=== PATIENT | male | born 1985 | race Caucasian/White ===

== ENCOUNTER 2021-10-31 14:24 | Emergency (ER) | payer MEDICAID ==
[~2021-10-31] VITALS: Ht 182.9 cm; Wt 62.0 kg
[2021-10-31 14:34] VITALS: BP 138/83
[2021-10-31] MEDS ORDERED: ONDANSETRON PF 4 MG/2 ML VIAL. IVP ONE (14:45)
[2021-10-31] MEDS ORDERED: MORPHINE SULFATE 2 MG/ML INJ. IVP ONE (14:45)
[2021-10-31] MEDS ORDERED: IV NORMAL SALINE 1000ML BAG 1,000 ML IV ONE (14:45)
[2021-10-31 15:02] LABS: BASO % 0 % (0-3); EOS # 0.1 x10^3/uL (0.0-0.7); EOS % 1 % (0-3); HEMATOCRIT 36.9 % (39.0-53.0); HEMOGLOBIN 12.9 g/dL (13.0-17.5); LYMPH # 1.3 x10^3/uL (1.0-4.8); LYMPH % 15 % (24-48); MEAN CORPUSCULAR HEMOGLOBIN 30 pg (25-35); MEAN CORPUSCULAR HGB CONC 35 g/dL (31-37); MEAN CORPUSCULAR VOLUME 84 fL (79-100); MONO # 0.7 x10^3/uL (0.0-1.1); MONO % 8 % (0-9); NEUT # 6.7 x10^3/uL (1.8-7.7); NEUT % 76 % (31-73); PLATELET COUNT 260 x10^3/uL (140-400); RED BLOOD COUNT 4.38 x10^6/uL (4.30-5.70); RED CELL DISTRIBUTION WIDTH 13.6 % (11.5-14.5); WHITE BLOOD COUNT 8.8 x10^3/uL (4.0-11.0)
[2021-10-31 15:15] LABS: CALCIUM 8.6 mg/dL (8.5-10.1); POTASSIUM 3.8 mmol/L (3.5-5.1)
[2021-10-31 15:16] LABS: BACTERIA,URINE 0 /HPF (0-FEW); RBC,URINE 0 /HPF (0-2)
[2021-10-31] MEDS ORDERED: MORPHINE SULFATE 4 MG/ML INJ. ONE (15:16)
[2021-10-31 15:23] LABS: ALBUMIN 3.5 g/dL (3.4-5.0); MAGNESIUM 1.8 mg/dL (1.8-2.4); TOTAL BILIRUBIN 0.6 mg/dL (0.2-1.0); TOTAL PROTEIN 6.9 g/dL (6.4-8.2)
--- NOTE | 2021-10-31 15:36 | RAD ---
EXAMINATION: CT HEAD AND C-SPINE WO. TECHNIQUE: Noncontrast axial images of the brain and cervical spine with coronal and sagittal recon structions were obtained. One or more of the following radiation dose reduction techniques was used: automated exposure control , adjustment of mA and/or KV according to patient size, and/or utilization of iterative reconstructio n technique. HISTORY: 36 years Male Reason: Seizure-like activity, struck right side of head, pain in the head a nd neck. FINDINGS: CT HEAD: There is no intracranial hemorrhage, edema or mass effect. The brain parenchyma appears unremarkable . No hydrocephalus. The visualized portions of the orbits and paranasal sinuses appear unremarkable. CT cervical spine: The alignment of the posterior spinal line satisfactory. The vertebral body heights are preserved. Disc heights are also preserved. There is good alignment at the lateral masses of C1 and C2 and atlantooccipital joints. No widening of the predental space. No fracture seen. The paraspinal soft tissues appear unremarkable. IMPRESSION: CT HEAD: No acute process. CT cervical spine: No acute process. Electronically signed by: Clifford West MD (10/31/2021 3:33 PM) [id number]
[2021-10-31 16:37] LABS: BARBITURATES NEG (NEG); BENZODIAZEPINES NEG (NEG); CANNABINOIDS NEG (NEG); COCAINE NEG (NEG); METHADONE NEG (NEG); OPIATES NEG (NEG); PHENCYCLIDINE NEG (NEG)
[2021-10-31 16:58] LABS: AMPHETAMINE/METHAMPHETAMINE NEG (NEG)
--- NOTE | 2021-10-31 18:10 | PHYS DOC ---
Past Medical History Additional Past Medical Histor: COLON RECTAL CANCER REMISSION 9YEARS, ULCERS, Past Surgical History: Cancer Surgery, Colectomy Additional Past Surgical Histo: ILLEOSTOMY-REVERSAL General Adult EDM: Chief Complaint: BLOOD SUGAR PROBLEM HPI: HPI: Patient is a 36-year-old male who presents to the emergency department via EMS complaining of a hypoglycemic episode with possible seizure-like activity per EMS transporting manifest clerk statement. Patient was found in postictal state, blood sugar was 64, patient was given 250 cc of D10, blood sugar elevated to 258 in route. Patient also at a sandwich and some milk prior to transport to the emergency department. Patient's sister reported she did fine patient shaking on the ground and what she thought was seizure-like activity, there was an unwitnessed onset of unresponsiveness and shakiness. Patient's sister called 911 immediately. Patient was not having seizure-like activity upon manifest clerk arrival. Patient reports he has a headache. 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 Patient reports he has had hypoglycemic episodes with shaking activity that was reported seizure-like however has not been diagnosed with seizures. Patient reports when he has these episodes it takes him at least 12 to 24 hours to fully recover neurologically. Patient currently denies nausea, does report a headache on the right side of his head., States this is not the worst headache of his life, patient states it feels as if he may have struck his head however does not recall being transported to the emergency department by paramedics. Patient denies abdominal pain, denies chest pain, denies chest or nasal congestion. Patient denies other physical complaints or physical concerns. Patient reports he does take Lantus every evening before going to bed, reports taking sliding scale NovoLog prior to eating 3 meals per day. Patient states he did take his morning NovoLog, states he is unsure if he has eaten or not. Review of Systems: Review of Systems: 14 body systems of review of systems have been reviewed. See HPI for pertinent positives and negative responses, otherwise all other systems are negative, nonpertinent or noncontributory. Constitutional: Negative except as outlined in HPI above. Skin: Negative except as outlined in HPI above. Eyes: Negative except as outlined in HPI above. HENT: Negative except as outlined in HPI above. Respiratory: Negative except as outlined in HPI above. Cardiovascular: Negative except as outlined in HPI above. GI: Negative except as outlined in HPI above. : Negative except as outlined in HPI above. Musculoskeletal: Negative except as outlined in HPI above. Integument: Negative except as outlined in HPI above. Neurologic: Negative except as outlined in HPI above. Endocrine: Negative except as outlined in HPI above. Lymphatic: Negative except as outlined in HPI above. Psychiatric: Negative except as outlined in HPI above. Heart Score: C/O Chest Pain: No Risk Factors: Risk Factors: DM, Current or recent (<one month) smoker, HTN, HLP, family history of CAD, obesity. Risk Scores: Score 0 - 3: 2.5% MACE over next 6 weeks - Discharge Home Score 4 - 6: 20.3% MACE over next 6 weeks - Admit for Clinical Observation Score 7 - 10: 72.7% MACE over next 6 weeks - Early Invasive Strategies Current Medications: Current Medications Medications (Trade) Dose Ordered Sig/Renny Start Time Stop Time Status Last Admin Dose Admin Morphine Sulfate (Morphine Sulfate) 4 mg STK-MED ONCE 10/31/21 15:16 10/31/21 15:16 DC Ondansetron HCl (Zofran) 4 mg 1X ONCE 10/31/21 14:45 10/31/21 15:20 DC 10/31/21 15:28 4 MG Sodium Chloride 1,000 ml @ 1,000 mls/hr 1X ONCE 10/31/21 14:45 10/31/21 15:44 DC 10/31/21 15:29 1,000 MLS/HR Allergies: Allergies: Allergies Coded Allergies Type Severity Reaction Last Updated Verified No Known Drug Allergies 10/31/21 No Physical Exam: PE: Constitutional: Well developed, well nourished, no acute distress, non-toxic appearance. 36-year-old male in no apparent distress. HENT: Normocephalic, atraumatic. Pain to palpation of the right parietal area of scalp, no contusion appreciated, no skull depressions, no crepitus appreciated. There is no skin abrasions. There is no malocclusion, normal dentition, the tongue tissues are intact, oral mucosa tissues intact. Eyes: Conjunctiva normal, no discharge. PERRLA Neck: Normal range of motion, no stridor. No nuchal rigidity, no meningeal signs. Cardiovascular: No cyanosis appreciated, distal cap refill less than 2 seconds. Lungs & Thorax: Patient is in no respiratory distress, no audible adventitious lung sounds appreciated. Abdomen: Nontender, no abnormalities noted. Skin: Warm, dry, no erythema, no rash. Back: No tenderness, no deformities. Extremities: No tenderness, no cyanosis, no clubbing, ROM intact, no edema. Neurologic: Alert and oriented X 3, normal motor function, normal sensory function, no focal deficits noted. Psychologic: Affect normal, judgement normal, mood normal. Current Patient Data: Labs: Laboratory Tests Test 10/31/21 14:52 White Blood Count 8.8 x10^3/uL Red Blood Count 4.38 x10^6/uL Hemoglobin 12.9 g/dL Hematocrit 36.9 % Mean Corpuscular Volume 84 fL Mean Corpuscular Hemoglobin 30 pg Mean Corpuscular Hemoglobin Concent 35 g/dL Red Cell Distribution Width 13.6 % Platelet Count 260 x10^3/uL Neutrophils (%) (Auto) 76 % Lymphocytes (%) (Auto) 15 % Monocytes (%) (Auto) 8 % Eosinophils (%) (Auto) 1 % Basophils (%) (Auto) 0 % Neutrophils # (Auto) 6.7 x10^3/uL Lymphocytes # (Auto) 1.3 x10^3/uL Monocytes # (Auto) 0.7 x10^3/uL Eosinophils # (Auto) 0.1 x10^3/uL Basophils # (Auto) 0.0 x10^3/uL Urine Collection Type Unknown Urine Color (Auto) Yellow Urine Turbidity Clear Urine pH (Auto) 6.0 Urine Specific [place] 1.030 Urine Protein (Auto) Negative mg/dL Urine Glucose (Auto)(UA) >=1000 mg/dL Urine Ketones (Auto) Negative mg/dL Urine Blood (Auto) Negative Urine Nitrite Negative Urine Bilirubin (Auto) Negative Urine Urobilinogen (Auto) Normal mg/dL Urine Leukocyte Esterase (Auto) Negative Urine RBC 0 /HPF Urine WBC 1-4 /HPF Urine Squamous Epithelial Cells Occ /LPF Urine Bacteria 0 /HPF Urine Mucus Mod /LPF Sodium Level 140 mmol/L Potassium Level 3.8 mmol/L Chloride Level 104 mmol/L Carbon Dioxide Level 26 mmol/L Anion Gap 10 Blood Urea Nitrogen 15 mg/dL Creatinine 1.0 mg/dL Estimated GFR (Cockcroft-Gault) 85.0 BUN/Creatinine Ratio 15 Glucose Level 164 mg/dL Calcium Level 8.6 mg/dL Magnesium Level 1.8 mg/dL Total Bilirubin 0.6 mg/dL Aspartate Amino Transf (AST/SGOT) 32 U/L Alanine Aminotransferase (ALT/SGPT) 25 U/L Alkaline Phosphatase 128 U/L Total Protein 6.9 g/dL Albumin 3.5 g/dL Albumin/Globulin Ratio 1.0 Urine Opiates Screen Neg Urine Methadone Screen Neg Urine Barbiturates Neg Urine Phencyclidine Screen Neg Urine Amphetamine/Methamphetamine Neg Urine Benzodiazepines Screen Neg Urine Cocaine Screen Neg Urine Cannabinoids Screen Neg Urine Ethyl Alcohol Neg Current Medications Medications (Trade) Dose Ordered Sig/Renny Route PRN Reason Start Time Stop Time Status Last Admin Dose Admin Sodium Chloride 1,000 ml @ 1,000 mls/hr 1X ONCE IV 10/31/21 14:45 10/31/21 15:44 DC 10/31/21 15:29 1,000 MLS/HR Ondansetron HCl (Zofran) 4 mg 1X ONCE IVP 10/31/21 14:45 10/31/21 15:20 DC 10/31/21 15:28 4 MG Morphine Sulfate (Morphine Sulfate) 2 mg 1X ONCE IVP 10/31/21 14:45 10/31/21 15:20 DC 10/31/21 15:28 2 MG Morphine Sulfate (Morphine Sulfate) 4 mg STK-MED ONCE .ROUTE 10/31/21 15:16 10/31/21 15:16 DC Laboratory Tests Test 10/31/21 14:52 White Blood Count 8.8 x10^3/uL (4.0-11.0) Red Blood Count 4.38 x10^6/uL (4.30-5.70) Hemoglobin 12.9 g/dL (13.0-17.5) L Hematocrit 36.9 % (39.0-53.0) L Mean Corpuscular Volume 84 fL (79-100) Mean Corpuscular Hemoglobin 30 pg (25-35) Mean Corpuscular Hemoglobin Concent 35 g/dL (31-37) Red Cell Distribution Width 13.6 % (11.5-14.5) Platelet Count 260 x10^3/uL (140-400) Neutrophils (%) (Auto) 76 % (31-73) H Lymphocytes (%) (Auto) 15 % (24-48) L Monocytes (%) (Auto) 8 % (0-9) Eosinophils (%) (Auto) 1 % (0-3) Basophils (%) (Auto) 0 % (0-3) Neutrophils # (Auto) 6.7 x10^3/uL (1.8-7.7) Lymphocytes # (Auto) 1.3 x10^3/uL (1.0-4.8) Monocytes # (Auto) 0.7 x10^3/uL (0.0-1.1) Eosinophils # (Auto) 0.1 x10^3/uL (0.0-0.7) Basophils # (Auto) 0.0 x10^3/uL (0.0-0.2) Urine Collection Type Unknown Urine Color (Auto) Yellow Urine Turbidity Clear Urine pH (Auto) 6.0 (<5.0-8.0) Urine Specific [place] 1.030 (1.000-1.030) Urine Protein (Auto) Negative mg/dL (Negative) Urine Glucose (Auto)(UA) >=1000 mg/dL (Negative) Urine Ketones (Auto) Negative mg/dL (Negative) Urine Blood (Auto) Negative (Negative) Urine Nitrite Negative (Negative) Urine Bilirubin (Auto) Negative (Negative) Urine Urobilinogen (Auto) Normal mg/dL (Normal) Urine Leukocyte Esterase (Auto) Negative (Negative) Urine RBC 0 /HPF (0-2) Urine WBC 1-4 /HPF (0-4) Urine Squamous Epithelial Cells Occ /LPF Urine Bacteria 0 /HPF (0-FEW) Urine Mucus Mod /LPF Sodium Level 140 mmol/L (136-145) Potassium Level 3.8 mmol/L (3.5-5.1) Chloride Level 104 mmol/L (98-107) Carbon Dioxide Level 26 mmol/L (21-32) Anion Gap 10 (6-14) Blood Urea Nitrogen 15 mg/dL (8-26) Creatinine 1.0 mg/dL (0.7-1.3) Estimated GFR (Cockcroft-Gault) 85.0 BUN/Creatinine Ratio 15 (6-20) Glucose Level 164 mg/dL (70-99) H Calcium Level 8.6 mg/dL (8.5-10.1) Magnesium Level 1.8 mg/dL (1.8-2.4) Total Bilirubin 0.6 mg/dL (0.2-1.0) Aspartate Amino Transferase (AST) 32 U/L (15-37) Alanine Aminotransferase (ALT) 25 U/L (16-63) Alkaline Phosphatase 128 U/L (46-116) H Total Protein 6.9 g/dL (6.4-8.2) Albumin 3.5 g/dL (3.4-5.0) Albumin/Globulin Ratio 1.0 (1.0-1.7) Urine Opiates Screen Neg (NEG) Urine Methadone Screen Neg (NEG) Urine Barbiturates Neg (NEG) Urine Phencyclidine Screen Neg (NEG) Urine Amphetamine/Methamphetamine Neg (NEG) Urine Benzodiazepines Screen Neg (NEG) Urine Cocaine Screen Neg (NEG) Urine Cannabinoids Screen Neg (NEG) Urine Ethyl Alcohol Neg (NEG) Laboratory Tests 10/31/21 14:52 Laboratory Tests 10/31/21 14:52 Vital Signs: Vital Signs Date Time Temp Pulse Resp B/P (MAP) Pulse Ox O2 Delivery O2 Flow Rate FiO2 10/31/21 15:28 14 99 Room Air 10/31/21 14:34 97.9 91 138/83 (101) 97.9 EKG: EKG: [] Radiology/Procedures: Radiology/Procedures: REASON: Seizure-like activity, struck right side of head, pain PROCEDURE: CT HEAD AND CERVICAL SPINE WO EXAMINATION: CT HEAD AND C-SPINE WO. TECHNIQUE: Noncontrast axial images of the brain and cervical spine with coronal and sagittal reconstructions were obtained. One or more of the following radiation dose reduction techniques was used: automated exposure control, adjustment of mA and/or KV according to patient size, and/or utilization of iterative reconstruction technique. HISTORY: 36 years Male Reason: Seizure-like activity, struck right side of head, pain in the head and neck. FINDINGS: CT HEAD: There is no intracranial hemorrhage, edema or mass effect. The brain parenchyma appears unremarkable. No hydrocephalus. The visualized portions of the orbits and paranasal sinuses appear unremarkable. CT cervical spine: The alignment of the posterior spinal line satisfactory. The vertebral body heights are preserved. Disc heights are also preserved. There is good alignment at the lateral masses of C1 and C2 and atlantooccipital joints. No widening of the predental space. No fracture seen. The paraspinal soft tissues appear unremarkable. IMPRESSION: CT HEAD: No acute process. CT cervical spine: No acute process. Electronically signed by: Clifford West MD (10/31/2021 3:33 PM) [id number] Course & Med Decision Making: Course & Med Decision Making Pertinent Labs and Imaging studies reviewed. (See chart for details) 36-year-old male, vital signs reviewed, presents emergency department concerning hypoglycemia and seizure-like activity. Physical examination found patient in postictal state, patient answered all questions appropriately however was slow to answer. The patient's blood sugar was 64, suspicious for seizure, low suspicion for hypoglycemic episode. Will order CT head and C-spine as it is uncertain that the patient fell and struck his head, saline lock, CBC, CMP, magnesium level, urinalysis assay, urine drug screen, IV normal saline 1000 cc, IV Zofran, IV morphine for headache pain. Patient's CT of head and C-spine unremarkable, CBC unremarkable, CMP is unremarkable or nonconcerning, this urine is not infected, his urine drug screen is negative for illicit drugs. Discussed all findings with patient, concerns for seizure activity, patient does report similar symptoms and presentation in the past. Discussed with patient will give recommendation for neurology follow- up, strict follow-up with primary care soon, return to ER precautions and concerns were addressed, patient gave verbal understanding of and is amenable to ED discharge planning. There was no return of seizure-like activity during ER stay, patient is unable to recall his last episode with similar symptoms of today, patient did state he had a traumatic brain injury 6 years ago and has had similar symptoms off and on since. Discussed with the patient all findings and diagnostic testing as well as the need to follow-up with their primary care provider for further evaluation and treatment or return to the ED if any new or worsening symptoms. Strict return precautions were also discussed at length, the patient voiced understanding and agreement with the discharge planning. The patient was nontoxic in appearance, in no apparent distress, and hemodynamically stable at the time of disposition. Dragon Disclaimer: Dragon Disclaimer: This electronic medical record was generated, in whole or in part, using a voice recognition dictation system. Departure Departure Impression: Primary Impression: Seizure-like activity Referrals: UNKNOWN PCP NAME (PCP) RELL AMIN MD Patient Instructions: Seizure, Adult Additional Instructions: You were transported to the emergency room today after being found unresponsive and shaking with seizure-like activity at home by your sister. You were treated for hypoglycemia of a blood sugar of 64 in route by transporting paramedics. You have stated you do not have a history of seizures however your presentation is very similar to patients diagnosed with seizures. The CT scan of your head and C-spine did not reveal any fractures or brain injury or broken bones. Your lab work is unremarkable. As we discussed, this may be a seizure you experienced today. I am giving a follow-up physician Dr. Temple for you to make an appointment and see soon either this week or next week, please call your primary care physician to advise them of your emergency room stay and that you have been recommended to follow-up with a neurologist for your seizure-like activity. Please let Dr. Temple know of your traumatic brain injury you had 6 years ago. Please continue to take all medications as prescribed by your physicians. Thank you for visiting our Emergency Department. It was a pleasure taking care of you today in the emergency department and we appreciate you trusting us with your care. If any additional problems come up don't hesitate to return to visit us. Please follow up with your primary care provider so they can plan additional care if needed and know about the problem that you had. If symptoms worsen come back to the Emergency Department. Any concerning symptoms that start such as chest pain, shortness of air, weakness or numbness on one side of the body, running high fevers or any other concerning symptoms return to the ER. ABIGAIL LINDSAY APRN October 31, 2021 18:10
== END 2021-10-31 17:50 | disposition home or self-care (01) ==
LOC: ER 14:24
DX: R56.9 Unspecified convulsions (principal); E16.2 Hypoglycemia, unspecified; R51.9 Headache, unspecified
CPT/HCPCS: 36415; 70450; 72125; 80053; 80307; 81001; 83735; 85025; 96361; 96374; 96375; 99284; J2270; J2405; J7030